=== PATIENT | male | born 1965 | race Caucasian/White ===

== ENCOUNTER → 2017-08-11 | Emergency (ER) | payer OTHER ==
[~2017-08-11] VITALS: Ht 167.6 cm; Wt 81.6 kg
[~2017-08-11] MED LIST: CARTIA XT120 MG PO; CEFTIN500 MG PO; CELEBREX100 MG PO; COZAAR100 MG; COZAAR100 MG PO; FLONASE16 GM NS; PNEU16DI2; ZYRTEC10 MG PO
== END | disposition home or self-care (01) ==
LOC: ER 11:54
DX: K29.70 Gastritis, unspecified, without bleeding (principal)

== ENCOUNTER 2020-08-08 16:12 | Emergency (ER) | payer OTHER ==
[~2020-08-08] VITALS: Ht 165.1 cm; Wt 72.1 kg
== END 2020-08-08 19:55 | disposition home or self-care (01) ==
LOC: ER 16:12
DX: S76.811A Strain of other specified muscles, fascia and tendons at thigh level, right thigh, initial encounter (principal); X50.0XXA Overexertion from strenuous movement or load, initial encounter; Y93.89 Activity, other specified; Y92.89 Other specified places as the place of occurrence of the external cause; Y99.8 Other external cause status

== ENCOUNTER 2021-05-01 13:45 | Emergency (ER) | payer OTHER ==
[~2021-05-01] VITALS: Ht 167.6 cm; Wt 82.1 kg
[2021-05-01] MEDS ORDERED: BENZONATATE200 M1 PO (17:39)
== END 2021-05-01 17:46 | disposition home or self-care (01) ==
LOC: ER 13:45
DX: J06.9 Acute upper respiratory infection, unspecified (principal); Z03.818 Encounter for observation for suspected exposure to other biological agents ruled out; R05.9 Cough, unspecified; R09.81 Nasal congestion

== ENCOUNTER 2021-10-16 07:32 | Emergency (ER) | payer OTHER ==
[~2021-10-16] VITALS: Ht 167.6 cm; Wt 81.6 kg
[~2021-10-16 07:32] MED LIST changes: +BENZONATATE200 M1 PO
== END 2021-10-16 10:48 | disposition home or self-care (01) ==
LOC: ER 07:32
DX: J06.9 Acute upper respiratory infection, unspecified (principal); I10 Essential (primary) hypertension; Z20.822 Contact with and (suspected) exposure to COVID-19

== ENCOUNTER 2022-01-30 09:05 | Emergency (ER) | payer OTHER ==
[~2022-01-30] VITALS: Ht 167.6 cm; Wt 81.6 kg
[2022-01-30] MEDS ORDERED: BENZONATATE200 M1 PO (10:28)
== END 2022-01-30 12:21 | disposition home or self-care (01) ==
LOC: ER 09:05
DX: J06.9 Acute upper respiratory infection, unspecified (principal); R05.9 Cough, unspecified; I10 Essential (primary) hypertension; Z20.822 Contact with and (suspected) exposure to COVID-19

== ENCOUNTER 2022-02-26 11:33 | Emergency (ER) | payer OTHER ==
[~2022-02-26] VITALS: Ht 167.6 cm; Wt 83.9 kg
[2022-02-26] MEDS ORDERED: FLONASE ALLERG9.9 ML NASAL (18:00)
[2022-02-26] MEDS ORDERED: ZYRTEC10 M3 PO (18:00)
[2022-02-26] MEDS ORDERED: SINUS RINSE ST1 EACH NASAL (18:00)
== END 2022-02-26 18:14 | disposition home or self-care (01) ==
LOC: ER 11:33
DX: J06.9 Acute upper respiratory infection, unspecified (principal); J00 Acute nasopharyngitis [common cold]; Z20.822 Contact with and (suspected) exposure to COVID-19; I10 Essential (primary) hypertension

== ENCOUNTER 2022-06-06 08:21 | Outpatient (CLI) | payer OTHER ==
[~2022-06-06 08:21] MED LIST changes: +FLONASE ALLERG9.9 ML NASAL; +GLIPIZIDE XL2.5 MG PO; +SINUS RINSE ST1 EACH NASAL; +ZYRTEC10 M3 PO
== END 2022-06-06 08:29 | disposition home or self-care (01) ==
LOC: RAD 08:21
PROVIDERS: ATTEND Family Medicine
DX: R76.11 Nonspecific reaction to tuberculin skin test without active tuberculosis (principal)

== ENCOUNTER 2022-07-27 11:15 | Emergency (ER) | payer OTHER ==
[~2022-07-27] VITALS: Ht 167.6 cm; Wt 77.1 kg
[2022-07-27] MEDS ORDERED: GLUMETZA1000 MG PO (12:12)
== END 2022-07-27 20:08 | disposition home or self-care (01) ==
LOC: ER 11:15
DX: R10.32 Left lower quadrant pain (principal); K57.92 Diverticulitis of intestine, part unspecified, without perforation or abscess without bleeding; E11.9 Type 2 diabetes mellitus without complications; Z79.84 Long term (current) use of oral hypoglycemic drugs; K80.20 Calculus of gallbladder without cholecystitis without obstruction

== ENCOUNTER 2022-10-04 08:17 | Emergency (ER) | payer OTHER ==
[~2022-10-04] VITALS: Ht 167.6 cm; Wt 77.1 kg
[~2022-10-04 08:17] MED LIST changes: +GLUMETZA1000 MG PO
== END 2022-10-04 09:16 | disposition home or self-care (01) ==
LOC: ER 08:17
DX: T16.2XXA Foreign body in left ear, initial encounter (principal); E11.9 Type 2 diabetes mellitus without complications; Z79.84 Long term (current) use of oral hypoglycemic drugs; I10 Essential (primary) hypertension

== ENCOUNTER 2024-07-05 09:46 | Outpatient (CLI) | payer OTHER | END 2024-07-05 10:03 | disposition home or self-care (01) | LOC: SONOGRAMA 09:46 | PROVIDERS: ATTEND Internal Medicine | DX: M25.562 Pain in left knee (principal) ==

== ENCOUNTER 2025-03-19 03:05 | Emergency (ER) | payer OTHER ==
[~2025-03-19] VITALS: Ht 170.2 cm; Wt 79.4 kg
[2025-03-19] MEDS ORDERED: ONDANSETRON HCL 2 MG/ML VIAL IM STA (03:41)
[2025-03-19] MEDS ORDERED: MORPHINE SULFATE 2 MG/ML SYRINGE IV STA (03:42)
[2025-03-19] MEDS ORDERED: 0.9 % SODIUM CHLORIDE 1,000 ML IV SCH (03:45)
[2025-03-19] MEDS ORDERED: ONDANSETRON HCL 2 MG/ML VIAL ONE (03:46)
[2025-03-19 04:22] LABS: BASO % 0.5 % (0.1-1.2); EOS # 0.12 (0.04-0.54); EOS % 1.6 % (0.7-7.0); LYMPH # 1.09 (1.18-3.74); LYMPH % 14.4 % (19.3-53.1); MEAN PLATELET VOLUME 9.10 fl (9.4-12.4); MONO # 0.29 (0.24-0.82); MONO % 3.8 % (4.7-12.5); NEUT # 6.00 (1.56-6.13); NEUT % 79.4 % (34.0-71.1); RED CELL DISTRIBUTION WIDTH 12.6 % (11.6-14.4)
[2025-03-19 04:38] LABS: ALT/SGPT 32 U/L (12-78); AST/SGOT 12 U/L (15-37); BILIRUBIN TOTAL 0.56 mg/dL (0.3-1.2); BUN CREA RATIO 14 (7.0-25.0); CREATININE SERUM 1.48 mg/dL (0.70-1.30); GFR 48.16; GLOBULINA 2.6 G/DL (2.4-3.5)
[2025-03-19 04:39] LABS: GLUCOSE FASTING 208 mg/dL (65-100); OSMOLALITY SERUM 298 MOSM/KG (275-295)
[2025-03-19 05:11] LABS: URINE APPEARANCE Clear; URINE BILIRRUBIN Negative (NEGATIVE); URINE BLOOD Negative; URINE COLOR Yellow; URINE KETONE Negative (NEGATIVE); URINE LEUKOCYTE Negative; URINE NITRATE Negative; URINE PROTEIN Negative (NEGATIVE); URINE UROBILINOGEN 0.2 E.U./dl
[2025-03-19 05:13] LABS: URINE BACTERIA 10.7 uL (0.0-1933); URINE RBC 2.4 uL (0.0-20.8); URINE WBC 5.8 uL (0.0-23.2)
[2025-03-19 05:47] LABS: URINE CAST 0.29 uL (0.0-1.40); URINE EPITHELIAL CELLS 1.2 uL (0.0-38.8); URINE GLUCOSE >=1000 MG/DL (NEGATIVE)
[2025-03-19] MEDS ORDERED: MORPHINE SULFATE 4 MG/ML CARTRIDGE IV STA (07:31)
[2025-03-19] MEDS ORDERED: TAMSULOSIN HCL 0.4 MG CAP PO STA (07:36)
[2025-03-19] MEDS ORDERED: TAMSULOSIN HCL 0.4 MG CAP PO ONE (07:43)
[2025-03-19] MEDS ORDERED: KETO10TA2 PO (09:17)
[2025-03-19] MEDS ORDERED: PYRIDIUM DS200 MG PO (09:17)
[2025-03-19] MEDS ORDERED: TAMS0.4C PO (09:17)
[2025-03-19] MEDS ORDERED: DUI500 PO (09:17)
== END 2025-03-19 10:05 | disposition home or self-care (01) ==
LOC: ER 03:05
PROVIDERS: Physician Assistant Medical
DX: N20.1 Calculus of ureter (principal); N13.30 Unspecified hydronephrosis